=== PATIENT | female | born 1970 | race Caucasian/White ===

== ENCOUNTER → 2022-08-05 | Outpatient (REF) | payer BC | LOC: M LAB REF 18:01 | PROVIDERS: ATTEND Internal Medicine Endocrinology, Diabetes & Metabolism | DX: E04.2 Nontoxic multinodular goiter (principal) ==

== ENCOUNTER 2023-07-15 12:10 | Day surgery (SDC) | payer BC ==
[~2023-07-15] VITALS: Ht 167.6 cm; Wt 73.0 kg
[2023-07-15] MEDS: NS 1,000 ML IV ONE (06:00)
[~2023-07-15 12:10] MED LIST: CELE0.09 PO; ESTR1TAB PO; GABA-1171; GABA-284 PO; GALZ25CA PO; MONT10TA97 PO; PANT40TA29 PO; PROBCAP14 PO; SERT50TA29 PO; THERTAB52 PO; VITA100065 PO; ZYRTTAB8 PO
[2023-07-15] MEDS ORDERED: LIDOCAINE 2% 100MG/5ML SDV (FOR ANES.) As Ordered ONE (14:14)
[2023-07-15] MEDS ORDERED: fentaNYL 100 MCG/2 ML INJECTION As Ordered ONE (14:14)
[2023-07-15] MEDS ORDERED: propofoL 200 MG/20 ML VIAL As Ordered ONE (14:14)
[2023-07-15 14:37] VITALS: TEMP 96.7
[2023-07-15 14:50] VITALS: BP 120/58; O2SAT 97
== END 2023-07-15 14:58 | disposition home or self-care (01) ==
LOC: M OPP 12:10
PROVIDERS: ATTEND Internal Medicine Gastroenterology
DX: K29.70 Gastritis, unspecified, without bleeding (principal); K30 Functional dyspepsia; G47.9 Sleep disorder, unspecified; Z79.51 Long term (current) use of inhaled steroids; Z79.52 Long term (current) use of systemic steroids; Z79.818 Long term (current) use of other agents affecting estrogen receptors and estrogen levels; Z79.891 Long term (current) use of opiate analgesic; Z79.899 Other long term (current) drug therapy; Z91.018 Allergy to other foods
CPT/HCPCS: 43239; 88305; J3010